=== PATIENT | male | born 1995 | race Two or more races ===

== ENCOUNTER 2019-05-12 01:59 | Emergency (ER) | payer SELFPAY ==
[~2019-05-12] VITALS: Ht 182.9 cm; Wt 88.6 kg
[2019-05-12 04:45] VITALS: BP 139/83
[2019-05-12] MEDS ORDERED: IBUPROFEN 600 MG TABLET PO ONE (04:45)
[2019-05-12] MEDS ORDERED: ACETAMINOPHEN 500 MG TABLET PO ONE (04:45)
[2019-05-12] MEDS ORDERED: AMOX TR/POT CLAV 875 MG/125 MG TABLET PO ONE (04:45)
== END 2019-05-12 04:54 | disposition home or self-care (01) ==
LOC: EMS 02:01
DX: K08.89 Other specified disorders of teeth and supporting structures (principal); F17.210 Nicotine dependence, cigarettes, uncomplicated
CPT/HCPCS: 99406